=== PATIENT | female | born 1950 | race Caucasian/White ===

== ENCOUNTER → 2017-06-24 08:58 | Outpatient (CLI) | payer MEDICARE, OTHER ==
[~2017-06-24 08:58] MED LIST: BUTALB-APAP-CA1 EACH PO; CELEXA20 MG PO; NEURONTIN 300300 MG PO; ULTRAM50 MG PO
--- NOTE | 2017-06-29 10:07 | EC ---
PATIENT:EVER TRUJILLO DATE OF SERVICE: 06/24/17 SEX: F MEDICAL RECORD: [id number] DATE OF : 52 LOCATION:D.FORMERLY [facility], [facility] AGE OF PATIENT: 66 ADMISSION DATE: 06/24/17 REFERRING PHYSICIAN: INTERPRETING PHYSICIAN: SANNA QUIROGA MD ECHOCARDIOGRAM REPORT ECHO CHARGES 4 ECHO COMPLETE CLINICAL DIAGNOSIS: SOB ECHOCARDIOGRAPHIC MEASUREMENTS (adult normal given) AC root (d.<3.7cm) 2.9 cm LV Septum d (<1.2 cm> 1.3 cm Valve Excursion 1.9 cm LV Septum (systole) 1.7 cm Left Atria (s.<4.0cm> 3.7 cm LVPW d(<1.2cm) 1.2 cm RV (d.<2.3cm) 2.8 cm LVPW (sytole) 1.6 cm LV diastole(<5.6CM) 4.4 cm MV E-F(>70mm/sec) cm LV systole 2.4 cm LVOT Diameter 1.8 cm MV exc.(>10mm) cm Est.ejection fraction (50-75%) % Pericardial Effusion N DOPPLER: LVIT cm/sec A 50.0 cm/sec E 83.0 cm/sec LA cm/sec RVSP 24.1 mmHg LVOT 104 cm/sec AOP1/2T m/s Asc. Ao 142 cm/sec RVOT 58.0 cm/sec RA cm/sec PA 96.0 cm/sec AV Gradient Peak 8.1 mmHg AV Mean 3.6 mmHg AV Area 2.0 cm MV Gradient Peak 4.0 mmHg MV Mean 1.2 mmHg MV Area cm COMMENTS: Railroad Track Repair Supervisor: Ray PEREZOE Project Program Manager: Su Quiroga TAPE# PACS DATE OF SERVICE: 06/24/2017 PROCEDURE: Transthoracic echocardiogram. FINDINGS: 1. The left ventricle is normal size and normal function. Normal inflow characteristics. Ejection fraction of 60%. 2. The right ventricle is mildly dilated with normal function. 3. The right atrium is normal size and normal function. 4. Left atrium is normal size and normal function. ECHOCARDIOGRAM REPORT [id number] EVER TRUJILLO 5. The mitral valve has mild mitral regurgitation with normal size. 6. The tricuspid valve has normal size, normal function and estimated normal right ventricular systolic pressure. CONCLUSIONS: Grossly normal echocardiogram with no obvious abnormalities. TRANSINT:[id number] Voice Confirmation ID: [id number] DOCUMENT ID: [id number] SANNA QUIROGA MD at 1007 CC: [id number] DICTATION DATE: 06/27/17 0934 DRIER UNLOADER: 06/27/17 1107 DEP CLI 06/24/17 [id number] [place] [address]
[2017-08-02 07:31] VITALS: BMI 33.7
== END | disposition home or self-care (01) ==
LOC: D.ECHO 08:58
DX: R06.02 Shortness of breath (principal)

== ENCOUNTER 2017-08-02 07:03 | Outpatient (CLI) | payer MEDICARE, OTHER ==
[~2017-08-02] VITALS: Ht 160 cm; Wt 86.4 kg
--- NOTE | ~2017-08-02 | HEMODYNAMI ---
PATIENT:EVER TRUJILLO MEDICAL RECORD: [id number] : 52 LOCATION:[facility] ADMISSION DATE: 08/02/17 Generatedon:08/02/201710:10 Patient name: EVER TRUJILLO Patient #: [id number] SSN: : 1950 Date of study: 08/02/2017 Page: Of Hemodynamic Procedure Report Patient Data Patient Demographics Procedure consent was obtained First Name: EVER Gender: Female Last Name: CASSANDRA : 1950 Middle Initial: EVE Age: 67 year(s) Patient #: [id number] Race: Unknown Additional ID: [id number] Contact details [address]: [address] [place] [address] State: [place] City: [place] Zip code: [address] Admission Admission Data Admission Date: 08/02/2017 Admission Time: 7:03 Procedure Procedure Types Cath Procedure Diagnostic Procedure LHC LHC w/Coronaries Miscellaneous Procedures Moderate Sedation up to 15 minutes Procedure Description Procedure Date Procedure Date: 08/02/2017 Procedure Start Time: 9:49 Procedure End Time: 10:10 Procedure Staff Name Function Jose L Wei MD Performing Physician Christy Lu RT Scrub Tigre Perea RN Nurse Carlos Higuera RT Monitor Procedure Data Cath Procedure Fluoroscopy Diagnostic fluoroscopy Total fluoroscopy Time: 6.9 time: 6.9 min min Diagnostic fluoroscopy Total fluoroscopy dose: 200 dose: 200 mGy mGy Contrast Material Contrast Material Type Amount (ml) Isovue 300 46 Entry Location Entry Primary Successful Side Size Upsize Upsize Entry Closure Jay ccessful Closure Location (Fr) 1 (Fr) 2 (Fr) Remarks Device Remarks Radial Right 6 Fr Mechanical artery Short Compression Estimated blood loss: 10 ml Diagnostic catheters Device Type Used For End Catheter Placement Diagnostic Terumo 5Fr Procedure Derby Line 110cm catheter Terumo 5Fr Lucas 110cm Procedure catheter Procedure Complications No complications Procedure Medications Medication Administration Route Dosage Oxygen NC 2 l/min Heparin Flush Bag added to field 2 bags (1000units/500ml NS) 0.9% NaCl I.V. 100 ml/hr Radial Cocktail added to field 1 syringe (Verapomil 2mg/Nitro 400mcg/Heparin 1500units) Fentanyl I.V. 50 mcg Versed I.V. 1 mg Zofran I.V. 4 mg Versed I.V. 1 mg Radial Cocktail I.A. 1 syringe (Verapomil 2mg/Nitro 400mcg/Heparin 1500units) Hemodynamics Rest Heart Rate: 61 (bpm) Pressure Samples Time Site Value (mmHg) Purpose Heart Use Rate(bpm) 9:59 AO 100/58(78) Snapshot 59 10:03 LV 129/-9,14 EDP 62 Gradients Valve Time Site Site Mean SEP/DFP Peak To Heart Use 1 2 (mmHg) (sec/min) Peak Rate (mmHg) (bpm) Aortic 10:04 LV AO 59 Snapshots Pre Cath Intra NCS Post Cath Vital Signs Time Heart Resp SPO2 etCO2 NIBP (mmHg) Rhythm Pain Sedation Rate (ipm) (%) (mmHg) Status Level (bpm) 9:43:59 56 18 100 31.5 154/87(137) NSR 0 (11) 10(A) , No pain 9:48:19 56 17 100 31.5 145/82(127) NSR 0 (11) 10(A) , No pain 9:52:43 61 17 99 32.3 119/71(93) NSR 0 (11) 9(A) , No pain 9:57:03 58 18 98 40.6 111/60(83) NSR 0 (11) 9(A) , No pain 10:01:19 56 17 98 37.6 114/58(77) NSR 0 (11) 9(A) , No pain 10:05:33 64 18 100 40.6 122/73(85) NSR 0 (11) 9(A) , No pain 10:09:47 60 12 100 40.6 119/75(102) NSR 0 (11) 9(A) , No pain Medications Time Medication Route Dose Verified Delivered Reason Notes E ffectiveness by by 9:43:43 Oxygen NC 2 l/min Jose L Landeros Per Sanjuana Perea RN physician 9:43:53 Heparin Flush added 2 bags Jose L Landeros used for Bag to Norred Perea senior licensing manager (1000units/500ml field AGUERO NS) 9:44:03 0.9% NaCl I.V. 100 Jose L Tirge Per ml/hr Sanjuana lofton MD 9:44:11 Radial Cocktail added 1 Jose L Tigre used for (Verapomil to syringe Sanjuana Perea RN procedure 2mg/Nitro field AGUERO 400mcg/Heparin 1500units) 9:48:05 Fentanyl I.V. 50 mcg Jose L Tigre for sedation Sanjuana Perea RN, MD 9:48:11 Zofran I.V. 4 mg Jose L Tigre Per Sanjuana lofton MD 9:48:12 Versed I.V. 1 mg Jose L Tigre for sedation Sanjuana Perea RN, MD 9:50:53 Versed I.V. 1 mg Jose L Tigre for sedation Sanjuana Perea RN, MD 9:51:44 Radial Cocktail I.A. 1 Jose L Jose L for (Verapomil syringe Sanjuana Wei MD vasodilation 2mg/Anh AGUERO 400mcg/Heparin 1500units) Procedure Log Time Note 9:20:48 Tigre Perea RN sent for patient. Start room use. 9:33:55 Time tracking: Regular hours 9:33:58 Plan of Care:Hemodynamics will remain stable., Cardiac rhythm will remain stable., Comfort level will be maintained., Respiratory function will remain adequate., Patient/ family verbilizes understanding of procedure., Procedure tolerated without complication., Recovers from procedure without complications.. 9:34:05 Patient received from Pre/Post Procedure Room to [facility] 3 Alert and oriented. Tansferred to table in Supine position. 9:34:06 Warm blankets applied, and sienna hugger turned on for patient comfort. 9:34:06 Correct patient and procedure confirmed by team. 9:34:07 Signed procedure consent form obtained from patient. 9:34:08 ECG and BP/O2 sat monitors applied to patient. 9:42:41 Vital chart was started 9:42:46 Rhythm: sinus rhythm 9:42:48 Full Disclosure recording started 9:42:53 H&P Date Dictated: 08/01/2017 Within 30 days and on chart., H&P Addendum completed by physician on day of procedure. (MUST COMPLETE FOR ALL OUTPATIENTS). 9:42:54 Pre-procedure instructions explained to patient. 9:42:54 Pre-op teaching completed and patient verbalized understanding. 9:42:59 Family in waiting room. 9:43:00 Patient NPO since Midnight. 9:43:01 Is the patient allergic to Iodine/contrast media? No. 9:43:03 Is patient on blood thinner?Yes 9:43:06 ACC The patient was administered the following blood thiners within the last 24 hours: ACCPlavix 9:43:08 Patient diabetic? No. 9:43:12 Patient not . Patient is over age 55. 9:43:14 Previous problem with sedation/anesthesia? No ? 9:43:28 Snore? Yes 9:43:29 Sleep apnea? Yes 9:43:30 Deviated septum? No 9:43:31 Opens mouth fully? Yes 9:43:31 Sticks out tongue? Yes 9:43:33 Airway obstruction? No ? 9:43:35 Dentures? Yes IN 9:43:40 Pre procedure: right dorsailis pedis pulse 1+ Palpable, but thready & weak; easily obliterated 9:43:42 Modified Michael's test Ulnar < 7 seconds 9:43:43 Oxygen 2 l/min NC was administered by Tigre Perea RN; Per physician; 9:43:46 Patient pain scale 0/10 ?. 9:43:53 Heparin Flush Bag (1000units/500ml NS) 2 bags added to field was administered by Tigre Perea RN; used for procedure; 9:43:53 IV patent on arrival in left forearm with 0.9% NaCl at KVO. 9:43:55 Lab results completed and on chart. 9:43:57 Right Radial & Right Groin area was prepped with chlora-prep and draped in sterile fashion 9:43:58 Alarms reviewed by R. N. 9:43:58 Sharps counted by scrub and verified by R.N. 9:44:03 0.9% NaCl 100 ml/hr I.V. was administered by Tigre Perea RN; Per physician; 9:44:11 Radial Cocktail (Verapomil 2mg/Nitro 400mcg/Heparin 1500units) 1 syringe added to field was administered by Tigre Perea RN; used for procedure; 9:46:19 --------ALL STOP TIME OUT------ 9:46:19 Final Timeout: patient, procedure, and site verified with staff and physician. All members of the team are in agreement. 9:46:23 Right Radial & Right Groin site verified by team. 9:46:27 Physical assessment completed. ASA score P 2 - A patient with mild systemic disease as per Jose L Wei MD. 9:46:31 Sedation plan: IV Moderate Sedation Medication:Versed, Fentanyl 9:48:05 Fentanyl 50 mcg I.V. was administered by Tigre Perea RN; for sedation; 9:48:11 Zofran 4 mg I.V. was administered by Tigre Perea RN; Per physician; 9:48:12 Versed 1 mg I.V. was administered by Tigre Perea RN; for sedation; 9:49:41 Use device set Radial Dx 9:49:43 Acist Hand Control opened to sterile field. 9:49:44 Acist Manifold opened to sterile field. 9:49:44 Tegaderm 4 x 4 opened to sterile field. 9:49:45 Acist Syringe opened to sterile field. 9:49:45 Medline Cath Pack opened to sterile field. 9:49:46 Bag Decanter opened to sterile field. 9:49:46 Terumo 6Fr Slender Glidesheath opened to sterile field. 9:49:46 St Adalid 260cm J .035 wire opened to sterile field. 9:49:47 MBrace Wrist Support opened to sterile field. 9:49:50 Procedure started. 9:49:55 Local anesthetic to right radial artery with Lidocaine 2% by Jose L Wei MD.INITIAL ACCESS ONLY 9:50:53 Versed 1 mg I.V. was administered by Tigre Perea RN; for sedation; 9:51:19 A 6 Fr Short sheath was inserted into the Right Radial artery 9:51:29 A Diagnostic Terumo 5Fr Derby Line 110cm catheter was advanced over the wire and used for Procedure. 9:51:44 Radial Cocktail (Verapomil 2mg/Nitro 400mcg/Heparin 1500units) 1 syringe I.A. was administered by Jose L Wei MD; for vasodilation; 9:52:44 Baseline sample Acquired. 9:54:32 LCA angiography performed. 9:56:53 Catheter exchanged over wire. 9:58:02 A Terumo 5Fr Lucas 110cm catheter was advanced over the wire and used for Procedure. 10:00:36 RCA angiography performed. 10:04:18 LV angiography performed. 10:04:19 LV gram done using NUNES 10:04:33 EF : 65 % 10:04:34 LV hemodynamics recorded. 10:04:36 Injector settings: Ml/sec: 12, Volume: 8, 10:04:38 Catheter removed. 10:04:46 Terumo TR Band Standard opened to sterile field. 10:04:55 Sheath removed intact; hemostasis achieved with Mechanical Compression to the Right Radial artery. 10:04:57 Procedure ended.(Physican Out) 10:05:53 Fluoroscopy time 06.90 minutes. 10:05:59 Fluoroscopy dose: 200 mGy 10:05:59 Flurop Dose total: 200 10:06:03 Contrast amount:Isovue 300 46ml. 10:06:04 Sharps counted by scrub and verified by R.N. 10:06:07 TR band inflated with 12cc of air. 10:06:08 Insertion/operative site no bleeding no hematoma. 10:06:09 Post Procedure Pulses reassessed and unchanged 10:06:12 Post-procedure physical assessment completed. ASA score P 2 - A patient with mild systemic disease as per Jose L Wei MD. 10:06:14 Post procedure rhythm: unchanged. 10:06:17 Estimated blood loss: 10 ml 10:06:18 Post procedure instruction explained to patient.Patient verbalizes understanding. 10:06:18 Patient needs reinforcement of post procedure teaching. 10:06:22 Procedure type changed to Cath procedure, Diagnostic procedure, LHC, LHC w/Coronaries, Miscellaneous Procedures, Moderate Sedation up to 15 minutes 10:06:59 Procedure and supply charges have been captured, reviewed, submitted and are correct. 10:07:02 Procedure Complication : No complications 10:09:57 Vital chart was stopped 10::57 See physician's report for complete and final results. 10:09:58 Report given to Pre/Post Procedure Room. 10:10:00 Patient transfered to Pre/Post Procedure Room with Stretcher. 10:10:02 Procedure ended. 10:10:02 Full Disclosure recording stopped 10:10:17 End room use (Document Last) Device Usage Item Name Manufacture Quantity Catalog Hospital Part Current Minimal Lot# / Number Charge Number Stock Stock Serial# Code Acist Hand Acist 1 05751 [id number] 877965 751235 5 Control [employer] Inc Acist Acist 1 64388 735962 723616 016936 5 Manifold [employer] Inc Tegaderm 4 3M 1 1626W 124145 076767 887497 5 x 4 Acist Acist 1 45908 509173 607061 295307 20 Syringe Medical Systems Inc Medline Cardinal 1 [id number] 039942 00337 821274 5 Cath Pack Health Bag Microtek 1 2002S 058022 09138 162276 5 Decanter Medical Inc. Terumo 6Fr Terumo 1 [id number] 057026 236721 726467 [address] Adalid 1 685112 678727 705667 239465 30 260cm J .035 wire MBrace Advanced 1 140-0250-00 258318 84515 560128 5 Wrist Vascular Support Dynamics Diagnostic Terumo 1 40-8839 842818 833889 343098 5 Terumo 5Fr Derby Line 110cm catheter Terumo 5Fr Terumo 1 40-3506 485905 637967 311125 5 Lucas 110cm catheter Terumo TR Terumo 1 [id number] 497940 411018 184303 40 Band Standard Signature Audit [place] Stage Time Signature Unsigned Intra-Procedure 08/02/2017 Carlos Higuera 10:10:28 AM RT(R) Signatures Monitor : Carlos Higuera RT Signature : Date : Time : [facility] [address] [facility] [place] [address]
[2017-08-02] MEDS ORDERED: CELEXA20 MG PO (07:19)
[2017-08-02] MEDS ORDERED: NEURONTIN 300300 MG PO (07:19)
[2017-08-02] MEDS ORDERED: ULTRAM50 MG PO (07:20)
[2017-08-02] MEDS ORDERED: BUTALB-APAP-CA1 EACH PO (07:20)
[2017-08-02 07:31] VITALS: BP 139/81; Ht 160 cm; Wt 86.4 kg
[2017-08-02 07:39] LABS: BASOPHILS 0.2 % (0-2); HEMATOCRIT 40.4 % (36.0-48.0); HEMOGLOBIN 13.5 g/dL (12-16); IMMATURE GRANULOCYTES 0.2 % (0-5); LYMPHOCYTES 32.3 % (15-50); MCH 31.5 pg (26.0-34.0); MCHC 33.4 g/dL (31.0-37.0); MCV 94.2 fL (80.0-100.0); MEAN PLATELET VOLUME 11.3 fL (7.4-10.4); MONOCYTES 8.4 % (2-11); NEUTROPHILS 57.9 % (40-80); PLATELET COUNT 212 10x3/uL (130-400); RBC 4.29 10x6/uL (4.00-5.40); RDW 12.8 % (11.5-14.5)
[2017-08-02 07:54] LABS: ANION GAP 10.1 mmol/L (8-16); CALCIUM 8.9 mg/dL (8.5-10.1); CARBON DIOXIDE 29.8 mmol/L (21.0-32.0); CREATININE - SERUM 0.9 mg/dL (0.6-1.3); POTASSIUM - SERUM 3.9 mmol/L (3.5-5.1)
--- NOTE | 2017-08-02 11:07 | NUR ---
1045 SITTING UP, ROOM AIR. VITALS ALL WNL. R WRIST TR BAND C/D/I W NO HEMATOMA OR BLEEDING. AT SIDE.
--- NOTE | 2017-08-02 11:29 | NUR ---
1115 HOB ELEVATED, ROOM AIR WITH VITALS ALL WNL. 2CC AIR REMOVED FROM R WRIST TR BAND. EATING SANDWICH AND TALKING WITH AT BEDSIDE.
--- NOTE | 2017-08-02 11:52 | NUR ---
PIV REMOVED FROM LEFT AC WITH BANDAID APPLIED. 2CC AIR REMOVED FROM R WRIST TR BAND. UP TO BEDSIDE TO DRESS WITH ASSIST FROM .
--- NOTE | 2017-08-02 12:14 | NUR ---
TR BAND WEANED COMPLETELY. TEGADERM AND COTTON BALL APPLIED TO RIGHT WRIST. BRACE REAPPLIED. D/C INSTRUCTIONS DISCUSSED WITH PATIENT AND FAMILY AT BEDSIDE. WHEELED OUT VIA WHEELCHAIR BY CATH STAFF.
== END 2017-08-02 12:15 | disposition home or self-care (01) ==
LOC: D.CATH 07:03
PROVIDERS: Internal Medicine Cardiovascular Disease
DX: R07.9 Chest pain, unspecified (principal); R94.30 Abnormal result of cardiovascular function study, unspecified; Z82.49 Family history of ischemic heart disease and other diseases of the circulatory system; R07.2 Precordial pain; Z01.812 Encounter for preprocedural laboratory examination

== ENCOUNTER 2017-10-06 11:46 | Emergency (ER) | payer MEDICARE, OTHER ==
[2017-08-02 07:31] VITALS: BMI 33.7
== END 2017-10-06 13:55 | disposition home or self-care (01) ==
LOC: D.ER 11:46
DX: L02.611 Cutaneous abscess of right foot (principal)

== ENCOUNTER 2017-10-13 13:47 | Emergency (ER) | payer MEDICARE, OTHER ==
[2017-08-02 07:31] VITALS: BMI 33.7
== END 2017-10-13 19:32 | disposition home or self-care (01) ==
LOC: D.ER 13:47
DX: L03.031 Cellulitis of right toe (principal)

== ENCOUNTER 2017-11-24 05:30 | Day surgery (SDC) | payer MEDICARE, OTHER ==
[2017-11-21 15:57] LABS: HEMATOCRIT 38.3 % (36.0-48.0); HEMOGLOBIN 12.7 g/dL (12-16); MCH 30.7 pg (26.0-34.0); MCHC 33.2 g/dL (31.0-37.0); MCV 92.5 fL (80.0-100.0); RBC 4.14 10x6/uL (4.00-5.40); WBC 7.5 10x3/uL (4.8-10.8)
[~2017-11-24] VITALS: Ht 162.6 cm; Wt 87.5 kg
--- NOTE | ~2017-11-24 | OP ---
PATIENT NAME: EVER TRUJILLO MEDICAL RECORD: [id number] :52 LOCATION:D.OPS ADMISSION DATE: SURGEON: ASHANTI JUNG MD DATE OF OPERATION: 11/24/2017 ANESTHESIOLOGIST: Dr. Serrano. ANESTHESIA: General. SURGEON: Ashanti Jung MD GLUE PLANT OPERATOR: None. PREOPERATIVE DIAGNOSIS: Dactylitis, right fourth toe. POSTOPERATIVE DIAGNOSIS: Dactylitis, right fourth toe. PROCEDURE PERFORMED: Right fourth distal phalanx bone biopsy and cultures. Antibiotics were held until after the culture and then 1 gram Ancef was given. BLOOD LOSS: Minimal. FINDINGS: See the body of the report. COMPLICATIONS: None. Pathology: mutiple wound cultures and a bone biopsy. Implants: None. Drains: None. Touniquet: An ankle tourniquet was applied using esmark. Post operative condition: Stable to the recovery room. Needle, Sponge, and instrument counts were correct. Indication for procedure: History of a right 4th toe deep infection and blister. The toe wound healed but it remains swollen and red. Bone scan was negative. Indication is to obtain OR cultures (AFB, Fungus, Aerobic, and Anaerobic) as well as a bone biopsy to assess for acute and subacute osteomyelitis. I present sensitivities will be helpful. If negative the diagnosis of sterile dactylitis will be made. DESCRIPTION OF PROCEDURE: The patient was seen in the clinic with a history of infection of the right fourth toe including blistering. She was treated; however, she developed dactylitis of the right fourth toe and there is concern for infection or acute and possibly subacute osteomyelitis. It was recommended that cultures and bone biopsy be done to rule out infection versus sterile inflammation. The patient was counseled. Risks, benefits, alternatives, and complications of the surgery were discussed. Her questions were answered and informed consent was obtained to proceed with the bone biopsy and cultures to rule out infection of the toe versus sterile inflammation. The patient presented to outpatient surgery. She was brought back to the operating room, placed supine on the operating table where anesthesia provided general anesthesia. A OPERATIVE REPORT [id number] EVER TRUJILLO time-out was then performed and following this, an incision was made dorsally over the distal phalanx. Dissection was carried down and then next to the extensor tendon, the bone was identified and I stripped the periosteum exposing dorsal cortex of the distal phalanx. A piece of bone was excised dorsally. It was sent for biopsy. Cultures were also taken. Irrigation was then carried out followed by closure using nylon sutures. A sterile dressing was then placed and she was placed in a postop shoe weight bearing on the heel. She was then awakened in stable condition and was brought to PACU. She will be allowed to be weightbearing on her heel in the post operative shoe. She will follow up in 10-14 days for a wound check and to review the official findings of the biopsy and cultures. Additional treatment will be indicated if the culture and/or biopsy is positive. She will require removal of sutures once the incision has healed. TRANSINT:[id number] Voice Confirmation ID: [id number] DOCUMENT ID: [id number] ASHANTI JUNG MD at 1711 CC: [id number] DICTATION DATE: 11/24/17 172 AVIATION SURVIVAL TECHNICIAN: 11/24/17 1746 [facility] 11/24/[address] [address]
[2017-11-24 05:49] VITALS: BP 143/84; Ht 162.6 cm; Wt 87.5 kg
== END 2017-11-24 09:52 | disposition home or self-care (01) ==
LOC: D.OPS 05:30 → D.PAN 07:30 → D.OPS 09:52
PROVIDERS: Anesthesiology
DX: L08.89 Other specified local infections of the skin and subcutaneous tissue (principal); M79.674 Pain in right toe(s); G47.30 Sleep apnea, unspecified; Z01.812 Encounter for preprocedural laboratory examination

== ENCOUNTER → 2018-03-28 15:17 | Outpatient (CLI) | payer MEDICARE, OTHER ==
[2017-11-24 05:49] VITALS: BMI 33.2
[~2018-03-28 15:17] MED LIST changes: +TORADOL10 MG PO
== END | disposition home or self-care (01) ==
LOC: D.MRI 15:17
DX: M25.562 Pain in left knee (principal)

== ENCOUNTER 2018-04-21 08:00 | Day surgery (SDC) | payer MEDICARE, OTHER ==
[2018-04-20 10:35] LABS: HEMATOCRIT 39.4 % (36.0-48.0); HEMOGLOBIN 13.2 g/dL (12-16); MCH 31.1 pg (26.0-34.0); MCHC 33.5 g/dL (31.0-37.0); MCV 92.9 fL (80.0-100.0); MEAN PLATELET VOLUME 10.9 fL (7.4-10.4); RBC 4.24 10x6/uL (4.00-5.40); RDW 12.9 % (11.5-14.5)
[~2018-04-21] VITALS: Ht 162.6 cm; Wt 90.7 kg
--- NOTE | ~2018-04-21 | OP ---
PATIENT NAME: EVER TRUJILLO MEDICAL RECORD: [id number] :52 LOCATION:D.OPS ADMISSION DATE: SURGEON: BRAD MISTRY DO DATE OF OPERATION: 04/21/2018 PROCEDURE PERFORMED: Left knee arthroscopy with partial medial and partial lateral meniscectomies. PREOPERATIVE DIAGNOSIS: Left knee with medial meniscal tear. POSTOPERATIVE DIAGNOSES: Left knee with medial meniscal tear with lateral meniscal tear as well. INDICATIONS: Ms. Trujillo is a 67-year-old female who presented to my office with knee pain, has popping, locking, catching on and even giving way at some point. She did not feel stable and wanted something done. X-rays were done initially and did not show much arthritis, so an MRI was done, which did indeed show a medial meniscal tear in the posterior horn of the medial meniscus. We informed her. She was seen by my nurse practitioner and we had a talk with her as well before surgery that we would take pictures and check out if she had any arthritis due to her age, but we would trim out the tear and discuss things further with her after the knee scope, but it should help her with the popping, catching, and locking and those feelings of knee pain and instability. SURGEON: Brad Mistry DO DESCRIPTION OF PROCEDURE: The patient was taken to the operative suite, laid in supine position, given 2 grams of Ancef preoperatively. The left lower extremity was prepped and draped in sterile fashion. A timeout was performed. Everyone was in agreement of correct side, site, patient and procedure. The procedure then began starting with the anterolateral portal and with an 11 blade the trocar was then entered into the knee and the suprapatellar pouch. The camera was entered into the knee and suprapatellar pouch was inspected as well as the undersurface of the patella and the trochlea. No chondromalacia was seen there. However, there was some synovitis. The lateral gutter was then inspected and no loose bodies were seen there as well as the medial gutter. The knee was then flexed down and once the knee was flexed entering into the medial compartment, the medial portal was established with an 18-gauge spinal needle and an 11-blade scalpel and a trocar and then a probe was put in. The knee was brought into extension with valgus stress and the medial meniscal tear was exposed. It was quite extensive extending from the middle of the medial meniscus all the way posteriorly. This was trimmed out with an up-biter and then a shaver and then the knee was flexed and the probe was pulled back in and then the shaver was taken out and the ACL was probed and seen to be very taut. This was then parked back in beyond the ACL and the lateral compartment and the knee was [id number]. Once it was [id number], the camera entered into the lateral joint and the lateral meniscus was exposed. The probe probed on the meniscus and there was a tear seen along the middle portion of the inside of the lateral meniscus, had some fraying and a tear. The shaver was put in and cleaned that up and was resected. Once this was done, the knee was brought into an extension and then the knee in the suprapatellar pouch was inspected for loose bodies and none were seen. Then, the patella seemed to track well in the trochlear groove. The knee flexed at 90 from 0-90. The water was then turned off. The suction was turned on to remove the excess fluid out of the knee and the portal sites, trocar, and everything was removed from the knee and the OPERATIVE REPORT [id number] EVER TRUJILLO portal sites were closed with 3-0 Monocryl in interrupted fashion with Steri-Strips, Adaptic, 4 x 4's, ABDs, Webril, Giovani wrap and then BRENT hose stocking placed up to the knee. The patient was awakened and taken to recovery in stable condition. TRANSINT:[id number] Voice Confirmation ID: [id number] DOCUMENT ID: [id number] BRAD MISTRY DO at 1549 CC: [id number] DICTATION DATE: 04/21/18 1208 FACILITIES PLANT ENGINEER: 04/21/18 [address] [place] [address]
[~2018-04-21 08:00] MED LIST changes: -TORADOL10 MG PO
[2018-04-21 09:11] VITALS: BP 134/68; Ht 162.6 cm; Wt 90.7 kg
[2018-04-21] MEDS ORDERED: TORADOL10 MG PO (12:00)
[2018-04-21] MEDS ORDERED: ULTRAM50 MG PO (12:01)
== END 2018-04-21 15:00 | disposition home or self-care (01) ==
LOC: D.OPS 08:00
PROVIDERS: Anesthesiology
DX: S83.242A Other tear of medial meniscus, current injury, left knee, initial encounter (principal); S83.282A Other tear of lateral meniscus, current injury, left knee, initial encounter; Z01.812 Encounter for preprocedural laboratory examination

== ENCOUNTER → 2018-10-30 14:20 | Outpatient (CLI) | payer MEDICARE, OTHER ==
[2018-04-21 09:11] VITALS: BMI 34.4
[~2018-10-30 14:20] MED LIST changes: +TORADOL10 MG PO
== END | disposition home or self-care (01) ==
LOC: D.RAD 14:20
DX: J18.9 Pneumonia, unspecified organism (principal)

== ENCOUNTER 2018-11-30 10:30 | Emergency (ER) | payer MEDICARE, OTHER ==
[~2018-11-30] VITALS: Ht 162.6 cm; Wt 88.2 kg
[2018-11-30 10:37] VITALS: Ht 162.6 cm; Wt 88.2 kg
[2018-11-30 11:15] LABS: BASOPHILS 0.1 % (0-2); HEMATOCRIT 40.9 % (36.0-48.0); HEMOGLOBIN 13.3 g/dL (12-16); IMMATURE GRANULOCYTES 0.7 % (0-5); LYMPHOCYTES 23.8 % (15-50); MCH 31.1 pg (26.0-34.0); MCHC 32.5 g/dL (31.0-37.0); MCV 95.6 fL (80.0-100.0); MONOCYTES 10.4 % (2-11); PLATELET COUNT 224 10x3/uL (130-400); RBC 4.28 10x6/uL (4.00-5.40); RDW 13.6 % (11.5-14.5); WBC 8.7 10x3/uL (4.8-10.8)
[2018-11-30 11:27] LABS: ALBUMIN 3.3 g/dL (3.4-5.0); ALKALINE PHOSPHATASE 77 U/L (46-116); ALT (SGPT) 71 U/L (10-68); BILIRUBIN - TOTAL 0.32 mg/dL (0.2-1.3); CALC OSMOLALITY 278 mosm/kg (275-300); CALCIUM 8.4 mg/dL (8.5-10.1); CARBON DIOXIDE 30.1 mmol/L (21.0-32.0); CHLORIDE - SERUM 102 mmol/L (98-107); GLUCOSE 79 mg/dL (74-106); POTASSIUM - SERUM 4.2 mmol/L (3.5-5.1); PROTEIN - SERUM 6.4 g/dL (6.4-8.2); SODIUM 140 mmol/L (136-145); UREA NITROGEN 16 mg/dL (7-18); eGFR NON AFRICAN AMERICAN 58 mL/min (90-120)
[2018-11-30 11:32] LABS: APTT 24.7 SECONDS (22.8-39.4); INR 0.92 (0.85-1.17); PROTIME 11.9 SECONDS (11.6-15.0)
[2018-11-30 11:38] LABS: CKMB 0.5 U/L (0.0-3.6); CREATINE KINASE 52 UL (21-215); MAGNESIUM - SERUM 2.3 mg/dL (1.8-2.4)
[2018-11-30 11:39] LABS: TROPONIN-I < 0.017 ng/mL (0.000-0.060)
[2018-11-30 12:35] VITALS: BP 140/80
== END 2018-11-30 12:35 | disposition home or self-care (01) ==
LOC: D.ER 10:30
PROVIDERS: Family Medicine
DX: R07.89 Other chest pain (principal); R07.81 Pleurodynia; Z86.73 Personal history of transient ischemic attack (TIA), and cerebral infarction without residual deficits

== ENCOUNTER 2019-01-19 09:00 | Outpatient (CLI) | payer MEDICARE, OTHER ==
[2018-11-30 10:37] VITALS: BMI 33.3
== END 2019-01-19 10:00 | disposition home or self-care (01) ==
LOC: D.MAMMO 09:00
PROVIDERS: ATTEND Family Medicine
DX: Z12.31 Encounter for screening mammogram for malignant neoplasm of breast (principal)

== ENCOUNTER → 2019-01-19 12:14 | Outpatient (CLI) | payer MEDICARE, OTHER ==
[2018-11-30 10:37] VITALS: BMI 33.3
== END | disposition home or self-care (01) ==
LOC: D.RT 12:14
PROVIDERS: ATTEND Internal Medicine Pulmonary Disease
DX: J44.9 Chronic obstructive pulmonary disease, unspecified (principal)

== ENCOUNTER → 2019-02-26 06:20 | Outpatient (CLI) | payer MEDICARE, OTHER ==
[2018-11-30 10:37] VITALS: BMI 33.3
== END | disposition home or self-care (01) ==
LOC: D.MRI 06:20
PROVIDERS: ATTEND Nurse Practitioner Family
DX: M67.431 Ganglion, right wrist (principal)

== ENCOUNTER 2019-03-23 09:55 | Day surgery (SDC) | payer MEDICARE, OTHER ==
[2019-03-22 08:51] LABS: HEMATOCRIT 38.5 % (36.0-48.0); MCH 31.6 pg (26.0-34.0); MCHC 33.8 g/dL (31.0-37.0); MCV 93.7 fL (80.0-100.0); MEAN PLATELET VOLUME 10.9 fL (7.4-10.4); RBC 4.11 10x6/uL (4.00-5.40); WBC 6.7 10x3/uL (4.8-10.8)
[~2019-03-23] VITALS: Ht 162.6 cm; Wt 88.5 kg
[2019-03-23] MEDS ORDERED: SUMATRIPTAN SUC25 MG PO (11:41)
[2019-03-23 11:43] VITALS: BP 122/74; Ht 162.6 cm; Wt 88.5 kg
[2019-03-23] MEDS ORDERED: VISTARIL50 MG PO (14:14)
[2019-03-23] MEDS ORDERED: HYDROCODON-ACE1 EAC7 PO (14:14)
--- NOTE | 2019-03-23 14:42 | OP ---
PATIENT NAME: EVER TRUJILLO MEDICAL RECORD: [id number] :52 LOCATION:[facility] ADMISSION DATE: SURGEON: MARIO ALBERTO MISTRY DO DATE OF OPERATION: 03/23/2019 PROCEDURE PERFORMED: Right wrist flexor carpi radialis tendon debridement with synovectomy. PREOPERATIVE DIAGNOSES: Right FCR tendon partial tear and synovitis. POSTOPERATIVE DIAGNOSES: Right FCR tendon partial tear and synovitis. INDICATIONS: Ms. Trujillo is a 68-year-old female who has had right wrist pain for quite some time. She thought she had a ganglion cyst. An MRI was done, which showed tenosynovitis in the flexor carpi radialis tendon and a partial tear. I injected her last week and she is not getting relief from it. Having that said, she was tired dealing with it and wanted something done. I told her I could do an debridement if it has continued to bother her and it did. She wanted it done, aware of the risks of infection, bleeding, damage to nerves and vessels, need for further surgery, rupture of the tendon and loss of strength to wrist flexion. She was okay with that and signed the consent. SURGEON: Mario Alberto Mistry DO DESCRIPTION OF PROCEDURE: The patient was taken to the operative suite, laid in supine position, given general anesthetic. Once she was back in the operating room, she was given general anesthetic and LMA was placed. Right upper extremity was prepped and draped in sterile fashion. A timeout was performed, everyone was in agreement as to the correct side, site, and patient and procedure. She was given 2 grams Ancef. The incision was marked over the FCR tendon at the wrist. An Esmarch was used to exsanguinate the right upper extremity and tourniquet was inflated to 250 mmHg, was up for 10 minutes. A small incision was made over the FCR tendon at the wrist and careful dissection was made down with Ragnell to the tendon. The tendon was debrided and there was a tear, approximately 30% of it. The torn tendon was debrided and the synovitis was removed. Synovectomy was done. I then released partially the tendon up into the wrist. Once that was completed, the tourniquet was let down. Any bleeding was coagulated with the bipolar. This incision was then closed with 4-0 Monocryl in an inverted interrupted fashion. Steri-Strips were placed on it and she was dressed with Adaptic, 4 x 4s, Webril and placed into a cockup wrist splint. She was awakened and taken to recovery in stable condition. BLOOD LOSS: Minimal. COMPLICATIONS: None. TRANSINT:[id number] Voice Confirmation ID: [id number] DOCUMENT ID: [id number] OPERATIVE REPORT [id number] EVER TRUJILLO MICHAEL D, DO at 1442 CC: [id number] DICTATION DATE: 03/23/19 1418 MANAGER INTELLIGENCE: 03/23/19 1437 [facility] [address] [place] [address]
== END 2019-03-23 16:09 | disposition home or self-care (01) ==
LOC: D.OPS 09:55 → D.PAN 13:45 → D.OPS 13:45
PROVIDERS: Anesthesiology; ATTEND Orthopaedic Surgery
DX: S66.811A Strain of other specified muscles, fascia and tendons at wrist and hand level, right hand, initial encounter (principal); X58.XXXA Exposure to other specified factors, initial encounter; M65.831 Other synovitis and tenosynovitis, right forearm; Z01.812 Encounter for preprocedural laboratory examination

== ENCOUNTER 2019-05-21 11:23 | Emergency (ER) | payer MEDICARE, OTHER ==
[~2019-05-21] VITALS: Ht 162.6 cm; Wt 92.7 kg
[~2019-05-21 11:23] MED LIST changes: +HYDROCODON-ACE1 EAC7 PO; +SUMATRIPTAN SUC25 MG PO; +VISTARIL50 MG PO
[2019-05-21 11:55] VITALS: Ht 162.6 cm; Wt 92.7 kg
[2019-05-21] MEDS ORDERED: OMEPRAZOLE40 MG PO (16:09)
[2019-05-21 16:30] VITALS: BP 150/87
[2019-06-01] MEDS ORDERED: [UNRECOGNIZED DRUG - OTHER] PO (12:46)
[2019-06-01] MEDS ORDERED: SINGULAIR10 MG PO (12:47)
[2019-06-01] MEDS ORDERED: TESSALON PERLE100 MG PO (12:47)
[2019-06-02] MEDS ORDERED: LASIX40 MG PO (11:26)
[2019-06-02] MEDS ORDERED: K-DUR20 MEQ PO (11:27)
== END 2019-05-21 17:02 | disposition home or self-care (01) ==
LOC: D.ER 11:23
DX: J44.9 Chronic obstructive pulmonary disease, unspecified (principal); K21.9 Gastro-esophageal reflux disease without esophagitis; F45.8 Other somatoform disorders

== ENCOUNTER → 2020-01-07 09:54 | Outpatient (CLI) | payer MEDICARE, OTHER ==
[2019-06-01 17:25] VITALS: BMI 35.1
[~2020-01-07 09:54] MED LIST changes: +K-DUR20 MEQ PO; +LASIX40 MG PO; +OMEPRAZOLE40 MG PO; +SINGULAIR10 MG PO; +TESSALON PERLE100 MG PO; +[UNRECOGNIZED DRUG - OTHER] PO
== END | disposition home or self-care (01) ==
LOC: D.MRI 09:54
PROVIDERS: ATTEND Clinical Nurse Specialist Family Health
DX: M25.832 Other specified joint disorders, left wrist (principal)

== ENCOUNTER 2020-04-11 05:16 | Day surgery (SDC) | payer MEDICARE, OTHER ==
[~2020-04-11] VITALS: Ht 162.6 cm; Wt 90.7 kg
[~2020-04-11 05:16] MED LIST changes: +PROAIR HFA8.5 G1 INH; +singular IH
[2020-04-11 06:11] LABS: MCH 30.5 pg (26.0-34.0); MCHC 32.4 g/dL (31.0-37.0); MCV 93.9 fL (80.0-100.0); MEAN PLATELET VOLUME 10.7 fL (7.4-10.4); RBC 3.94 10x6/uL (4.00-5.40); RDW 13.2 % (11.5-14.5); WBC 7.3 10x3/uL (4.8-10.8)
[2020-04-11 06:24] LABS: ANION GAP 7.6 mmol/L (8-16); CALCIUM 7.8 mg/dL (8.5-10.1); CARBON DIOXIDE 31.9 mmol/L (21.0-32.0); CREATININE - SERUM 1.2 mg/dL (0.6-1.3); POTASSIUM - SERUM 3.5 mmol/L (3.5-5.1)
[2020-04-11] MEDS ORDERED: PREDNISONE (06:52)
[2020-04-11] MEDS ORDERED: [UNRECOGNIZED DRUG - OTHER] (06:53)
[2020-04-11 06:57] VITALS: Ht 162.6 cm; Wt 90.7 kg
--- NOTE | 2020-04-11 09:44 | NUR ---
0940 IV DC'D. CATHETER TIP INTACT. NO BLEEDING AT SITE. COBAN DRESSING APPLIED TO IV SITE. REVIEWED DISCHARGE INSTRUCTIONS TO PT WHO VOICES UNDERSTANDING OF INSTRUCTIONS.
--- NOTE | 2020-04-14 08:19 | OP ---
PATIENT NAME: EVER TRUJILLO MEDICAL RECORD: [id number] :52 [facility] ADMISSION DATE: SURGEON: BRAD MISTRY DO DATE OF OPERATION: 04/11/2020 PROCEDURE PERFORMED: Left wrist first dorsal compartment release. PREOPERATIVE DIAGNOSIS: Left wrist radial styloid tenosynovitis with ganglion cyst. POSTOPERATIVE DIAGNOSIS: Left wrist radial styloid tenosynovitis with ganglion cyst. INDICATIONS: Ms. Trujillo is a 69-year-old female well known to me, who has had left wrist pain. She had a ganglion cyst, what appeared to be ganglion cyst coming off the first dorsal compartment of the left wrist. She said it popped and went down and went away, but she still had pain and positive Juan Manuel test, so informed we will release that compartment and look for a cyst that was coming off the tendon sheath and anything and take it out if I could but this was not found. Informed her also the risk of the damage to the radial sensory nerve at the wrist and tingling into that distribution. She was aware of all that, as well as infection, bleeding, damage to nerves or vessels, continued pain, recurrence of the cyst, and she signed the consent. SURGEON: Brad Mistry DO DESCRIPTION OF PROCEDURE: The patient was taken to the operative suite, laid in supine position, given general anesthetic. An LMA was placed. The left upper extremity was then prepped and draped in sterile fashion. Timeout was performed, everyone was in agreement as to the correct site the patient and procedure. She received a gram of Ancef preoperatively. The left upper extremity was then prepped and draped in sterile fashion before the timeout was performed and then the left upper extremity was exsanguinated with an Esmarch tourniquet was inflated to 250 mmHg, was up for 9 minutes. I then made an incision over the radial styloid made careful dissection down retracting the radial sensory nerve all the way down to the first dorsal compartment. I then made an incision in the first dorsal compartment opened on the dorsal side of it and then searched the first dorsal compartment to ensure there were no other slips of the APL and there were not. Also, I searched for the ganglion cyst, which appeared to be synovial cyst, whichever it was or tendon sheath cyst and did not find it. After I released it, I then used 4-0 Monocryl and tacked down the sheath as to keep it partially open and not let the tendon sublux then the tourniquet was let down. Devin Castaneda, certified family mediator anesthetized the area with 0.25% Marcaine with epinephrine and 10 mL of it and then closed the wound with 4-0 Monocryl in inverted interrupted fashion and placed Steri-Strips, Adaptic, 4 x 4's, Kerlix, and Coban lightly wrapped around the wrist. She was then awakened and taken to recovery in stable condition. BLOOD LOSS: Minimal. COMPLICATIONS: None. TRANSINT:[id number] Voice Confirmation ID: [id number] DOCUMENT ID: [id number] OPERATIVE REPORT [id number] EVER TRUJILLO MICHAEL D, DO at 0819 CC: [id number] DICTATION DATE: 04/11/20827 TECHNICAL INTERNSHIP: 04/11/20 1905 [facility] 04/11/20 [facility] [address] [place] [address]
== END 2020-04-11 09:47 | disposition home or self-care (01) ==
LOC: D.OPS 05:16 → D.PAN 07:45 → D.OPS 08:00
PROVIDERS: Anesthesiology; ATTEND Orthopaedic Surgery
DX: M65.4 Radial styloid tenosynovitis [de Quervain] (principal); J44.9 Chronic obstructive pulmonary disease, unspecified; M25.532 Pain in left wrist; M67.432 Ganglion, left wrist